=== PATIENT | female | born 1975 | race Caucasian/White ===

== ENCOUNTER 2023-10-19 14:59 | Outpatient (CLI) | payer MEDICAID | END 2023-10-19 23:59 | disposition home or self-care (01) | LOC: RAD 14:59 | PROVIDERS: ATTEND Family Medicine | DX: M53.3 Sacrococcygeal disorders, not elsewhere classified (principal) | CPT/HCPCS: 73522 ==

== ENCOUNTER 2023-12-30 16:40 | Outpatient (CLI) | payer MEDICAID | END 2023-12-30 23:59 | disposition home or self-care (01) | LOC: MRI 16:40 | PROVIDERS: ATTEND Nurse Practitioner Primary Care | DX: M89.312 Hypertrophy of bone, left shoulder (principal); M75.102 Unspecified rotator cuff tear or rupture of left shoulder, not specified as traumatic; M75.82 Other shoulder lesions, left shoulder; M25.512 Pain in left shoulder | CPT/HCPCS: 73221 ==

== ENCOUNTER 2024-09-11 16:13 | Outpatient (CLI) | payer MEDICAID | END 2024-09-11 23:59 | disposition home or self-care (01) | LOC: MRI02 16:13 | PROVIDERS: ATTEND Orthopaedic Surgery | DX: S83.282A Other tear of lateral meniscus, current injury, left knee, initial encounter (principal); M25.562 Pain in left knee; X58.XXXA Exposure to other specified factors, initial encounter; Y93.89 Activity, other specified; Y92.89 Other specified places as the place of occurrence of the external cause; Y99.8 Other external cause status | CPT/HCPCS: 73721 ==